=== PATIENT | male | born 1980 | race Caucasian/White ===

== ENCOUNTER 2018-07-03 09:49 | Observation (INO) | payer BC ==
[2018-07-03] MEDS ORDERED: Sodium Chloride 0.9% 2.5 ML Syringe FLUSH PRN (10:03)
[2018-07-03] MEDS ORDERED: Sodium Chloride 0.9% 10 ML Syringe FLUSH PRN (10:03)
[2018-07-03] MEDS ORDERED: Nitroglycerin 0.4 MG Tab.SL SL PRN (10:03)
[2018-07-03] MEDS ORDERED: Aspirin 81 MG Tab.Chew PO ONE (10:03)
--- NOTE | 2018-07-03 10:08 | EDM.PDOC ---
ED HPI GENERAL MEDICAL PROBLEM - General Chief Complaint: Chest Pain Stated Complaint: CHEST PAIN Time Seen by Provider: 07/03/18 10:02 Source of Information: Reports: Patient History Limitations: Reports: No Limitations - History of Present Illness INITIAL COMMENTS - FREE TEXT/NARRATIVE: History of present illness: []Patient awoke with 9/10 right-sided chest pain this morning that has subsided. He took an Ativan for his anxiety and a Pepcid for his GERD without relief. Patient arrives on his own with continued chest pain. Denies any recent illnesses. Patient states he has a family history of heart disease, is a heavy smoker as turned 38 and has not been worked up for heart disease and now is concerned. Review of systems: As per history of present illness and below otherwise all systems reviewed and negative. Past medical history: As per history of present illness and as reviewed below otherwise noncontributory. Surgical history: As per history of present illness and as reviewed below otherwise noncontributory. Social history: No reported history of drug or alcohol abuse. Family history: As per history of present illness and as reviewed below otherwise noncontributory. Physical exam: General: Well developed, well nourished in NAD HEENT: Atraumatic, normocephalic, pupils reactive, negative for conjunctival pallor or scleral icterus, mucous membranes moist, throat clear, neck supple, nontender, trachea midline. Lungs: Clear to auscultation, breath sounds equal bilaterally, chest nontender. Heart: S1S2, regular, negative for clicks, rubs, or JVD. Abdomen: NABS, Soft, nondistended, nontender. Negative for masses or hepatosplenomegaly. Negative for costovertebral tenderness. Pelvis: Stable nontender. Genitourinary: Deferred. Rectal: Deferred. Extremities: Atraumatic, negative for cords or calf pain. Neurovascular unremarkable. Neuro: Awake, alert, oriented. Cranial nerves II through XII unremarkable. Cerebellum unremarkable. Motor and sensory unremarkable throughout. Exam nonfocal. Skin:warm and dry Diagnostics: EKG, CBC, chemistry, troponin, chest x-ray Therapeutics: Aspirin, nitroglycerin ED Course: chest pain resolved Impression: Chest pain Prescriptions: none Plan: admit for chest pain, rule out NE Definitive disposition and diagnosis as appropriate pending reevaluation and review of above. Right Chest Pain Score (Numeric/FACES): 5 - Related Data Allergies Allergy/AdvReac Type Severity Reaction Status Date / Time codeine Allergy Cannot Verified 07/03/18 09:56 Remember Home Meds: Home Meds FLUoxetine [PROzac] 20 mg PO DAILY 07/03/18 [History] LORazepam [Ativan] 0.5 mg PO PRN 07/03/18 [History] Past Medical History Psychiatric History: Reports: Anxiety - Infectious Disease History Infectious Disease History: Reports: Chicken Pox Social & Family History - Family History Family Medical History: Noncontributory - Tobacco Use Smoking Status *Q: Current Every Day Smoker Years of Tobacco use: 20 Packs/Tins Daily: 0.5 - Recreational Drug Use Recreational Drug Use: No ED ROS GENERAL - Review of Systems Review Of Systems: ROS reveals no pertinent complaints other than HPI. ED EXAM, GENERAL - Physical Exam Exam: See Below (See history of present illness) Course - Vital Signs Last Recorded V/S: Last Vital Signs Temp 97.3 F 07/03/18 12:04 Pulse 77 07/03/18 12:04 Resp 18 07/03/18 12:04 BP 111/73 07/03/18 12:04 Pulse Ox 97 07/03/18 13:00 - Orders/Labs/Meds Orders: Active Orders 24 hr Category Date Time Status Patient Status [ADT] Stat ADT 07/03/18 11:30 Active EKG Documentation Completion [RC] STAT Care 07/03/18 10:02 Active Nitroglycerin [Nitrostat] Med 07/03/18 10:03 Active 0.4 mg SL Q5M PRN Sodium Chloride 0.9% [Saline Flush] Med 07/03/18 10:03 Active 10 ml FLUSH ASDIRECTED PRN Sodium Chloride 0.9% [Saline Flush] Med 07/03/18 10:03 Active 2.5 ml FLUSH ASDIRECTED PRN Saline Lock Insert [OM.PC] Stat Oth 07/03/18 10:02 Ordered Medication Orders Acetaminophen (Tylenol) 650 mg PO Q4H PRN PRN Reason: Pain (mild 1-3) Nitroglycerin (Nitrostat) 0.4 mg SL Q5M PRN PRN Reason: Chest Pain Last Admin: 07/03/18 11:19 Dose: 0.4 mg Ondansetron HCl (Zofran Odt) 4 mg PO Q4H PRN PRN Reason: nausea, able to take PO Sodium Chloride (Saline Flush) 10 ml FLUSH ASDIRECTED PRN PRN Reason: Keep Vein Open Last Admin: 07/03/18 10:17 Dose: 10 ml Sodium Chloride (Saline Flush) 2.5 ml FLUSH ASDIRECTED PRN PRN Reason: Keep Vein Open Last Admin: 07/03/18 10:17 Dose: 2.5 ml Labs: Laboratory Tests 07/03/18 07/03/18 Range/Units 10:12 10:12 WBC 6.45 (4.0-11.0) K/uL RBC 5.06 (4.50-5.90) M/uL Hgb 15.5 (13.0-17.0) g/dL Hct 46.7 (38.0-50.0) % MCV 92.3 (80.0-98.0) fL MCH 30.6 (27.0-32.0) pg MCHC 33.2 (31.0-37.0) g/dL RDW Std Deviation 43.5 (28.0-62.0) fl RDW Coeff of Trent 13 (11.0-15.0) % Plt Count 271 (150-400) K/uL MPV 10.20 (7.40-12.00) fL Neut % (Auto) 69.6 (48.0-80.0) % Lymph % (Auto) 21.4 (16.0-40.0) % Terry % (Auto) 7.3 (0.0-15.0) % Eos % (Auto) 1.2 (0.0-7.0) % Baso % (Auto) 0.5 (0.0-1.5) % Neut # (Auto) 4.5 (1.4-5.7) K/uL Lymph # (Auto) 1.4 (0.6-2.4) K/uL Terry # (Auto) 0.5 (0.0-0.8) K/uL Eos # (Auto) 0.1 (0.0-0.7) K/uL Baso # (Auto) 0.0 (0.0-0.1) K/uL Nucleated RBC % 0.0 /100WBC Nucleated RBCs # 0 K/uL Sodium 138 (136-148) mmol/L Potassium 4.1 (3.5-5.1) mmol/L Chloride 104 (98-107) mmol/L Carbon Dioxide 25.6 (21.0-32.0) mmol/L BUN 11 (7.0-18.0) mg/dL Creatinine 0.9 (0.8-1.3) mg/dL Est Cr Clr Drug Dosing 109.10 mL/min Estimated GFR (MDRD) > 60.0 ml/min Glucose 108 H (74-106) mg/dL Calcium 8.7 (8.5-10.1) mg/dL Total Bilirubin 0.3 (0.2-1.0) mg/dL AST 13 L (15-37) IU/L ALT 22 (14-63) IU/L Alkaline Phosphatase 88 (46-116) U/L Troponin I < 0.050 (0.000-0.056) ng/mL Total Protein 7.5 (6.4-8.2) g/dL Albumin 3.9 (3.4-5.0) g/dL Globulin 3.6 (2.6-4.0) g/dL Albumin/Globulin Ratio 1.1 (0.9-1.6) TSH 3rd Generation 0.68 (0.36-3.74) uIU/mL Meds: Medications Generic Name Dose Route Start Last Admin Trade Name Freq PRN Reason Stop Dose Admin Acetaminophen 650 mg 07/03/18 12:20 Tylenol PO Q4H PRN Pain (mild 1-3) Nitroglycerin 0.4 mg 07/03/18 10:07/03/18 11:19 Nitrostat SL 0.4 mg Q5M PRN Administration Chest Pain Ondansetron HCl 4 mg 07/03/18 12:20 Zofran Odt PO Q4H PRN nausea, able to take PO Sodium Chloride 10 ml 07/03/18 10:07/03/18 10:17 Saline Flush FLUSH 10 ml ASDIRECTED PRN Administration Keep Vein Open Sodium Chloride 2.5 ml 07/03/18 10:03 07/03/18 10:17 Saline Flush FLUSH 2.5 ml ASDIRECTED PRN Administration Keep Vein Open Discontinued Medications Generic Name Dose Route Start Last Admin Trade Name Freq PRN Reason Stop Dose Admin Aspirin 324 mg 05/08/19 10:03 07/03/18 10:15 Aspirin PO 07/03/18 10:04 324 mg ONETIME ONE Administration Famotidine 20 mg 07/03/18 12:22 07/03/18 13:35 Pepcid IVPUSH 07/03/18 12:23 20 mg ONETIME ONE Administration Departure - Departure Time of Disposition: 11:55 Disposition: Refer to Observation Condition: Good Clinical Impression: Chest pain Qualifiers: Chest pain type: unspecified Qualified Code(s): R07.9 - Chest pain, unspecified - My Orders Last 24 Hours: My Active Orders 07/03/18 10:02 EKG Documentation Completion [RC] STAT Saline Lock Insert [OM.PC] Stat 07/03/18 10:03 Nitroglycerin [Nitrostat] 0.4 mg SL Q5M PRN Sodium Chloride 0.9% [Saline Flush] 10 ml FLUSH ASDIRECTED PRN Sodium Chloride 0.9% [Saline Flush] 2.5 ml FLUSH ASDIRECTED PRN 07/03/18 11:30 Patient Status [ADT] Stat - Assessment/Plan Last 24 Hours: My Active Orders 07/03/18 10:02 EKG Documentation Completion [RC] STAT Saline Lock Insert [OM.PC] Stat 07/03/18 10:03 Nitroglycerin [Nitrostat] 0.4 mg SL Q5M PRN Sodium Chloride 0.9% [Saline Flush] 10 ml FLUSH ASDIRECTED PRN Sodium Chloride 0.9% [Saline Flush] 2.5 ml FLUSH ASDIRECTED PRN 07/03/18 11:30 Patient Status [ADT] Stat
--- NOTE | 2018-07-03 10:38 | CR ---
EXAMINATION: Portable chest radiograph. HISTORY: Shortness of breath. FINDINGS: The trachea is midline. The cardiomediastinal silhouette is within normal limits. No pulmonary infiltrates, effusions or pneumothorax. Osseous structures appear unremarkable. IMPRESSION: No acute cardiopulmonary process.
[2018-07-03 10:54] LABS: CHLORIDE,CL 104 mmol/L (98-107); SODIUM,NA 138 mmol/L (136-148)
--- NOTE | 2018-07-03 12:11 | PCM.HP ---
H&P History of Present Illness - General Date of Service: 07/03/18 Admit Problem/Dx: Admission Diagnosis/Problem Admission Diagnosis/Problem Chest pain Source of Information: Patient History Limitations: Reports: No Limitations - History of Present Illness Initial Comments - Free Text/Narative: This 38 year old male with pmh of GERD and anxiety presented to the ED with complaints of chest pain that woke him up this morning around 6 am. He reports this pain was sharp and achey in nature all across his chest with some radiation to R forearm. He also had the dry heaves with diaphoresis. He took his Prozac and Nexium as normal to try help the pain, this didn't seem to work so he tried his PRN Ativan thinking maybe it was anxiety, but that also didn't help. Nothing seemed to make it worse. When it didn't go away and the pain was around a 9/10 he felt he should be evaluated in the ED. He reports this pain happens intermittently and has seen providers for it in the past, he reports they check labs and nothing comes back abnormal. He denies ever having a stress test. He denies any recent injury trauma or repetitive movements. No fevers, chills dyspnea or palpitations. No abdominal pain or urinary concerns. He reports he recently had his labwork checked at the [place] and his cholesterol was good. He reports he has family with heart disease, including his father and both grandfathers with MIs in their 60s. His father and brother had DM Type 2. He denies known personal hx of CAD or DM. He report 1/2 ppd cigarette use, rare alcohol use and no recreational drug use. In the ED labwork was all WNL. Troponin negative. EKG no acute ST segment changes and no signs of acute ischemia. CXR negative. He reports pain was relieved with 1 SL nitro and the ASA. He will be admitted for chest pain rule out ACS PCP, [place] Right Chest Pain Score (Numeric/FACES): 5 - Related Data Allergies/Adverse Reactions: Allergies Allergy/AdvReac Type Severity Reaction Status Date / Time codeine Allergy Cannot Verified 07/03/18 09:56 Remember Home Medications: Home Meds FLUoxetine [PROzac] 07/03/18 [History] LORazepam [Ativan] 07/03/18 [History] Past Medical History Cardiovascular History: Reports: None. Denies: Afib, Blood Clots/VTE/DVT, High Cholesterol, Hypertension, NC Respiratory History: Reports: None. Denies: Asthma, COPD, SOB Gastrointestinal History: Reports: GERD. Denies: GI Bleed Genitourinary History: Reports: None. Denies: Chronic Renal Insuffiency Musculoskeletal History: Reports: None Neurological History: Reports: None. Denies: CVA, Migraines, TIA Psychiatric History: Reports: Anxiety Endocrine/Metabolic History: Reports: None. Denies: Diabetes, Type II, Hypothyroidism - Infectious Disease History Infectious Disease History: Reports: Chicken Pox Social & Family History - Family History Family Medical History: Noncontributory - Tobacco Use Smoking Status *Q: Current Every Day Smoker Years of Tobacco use: 20 Packs/Tins Daily: 0.5 - Alcohol Use Alcohol Use History: No - Recreational Drug Use Recreational Drug Use: No H&P Review of Systems - Review of Systems: Review Of Systems: See Below General: Reports: No Symptoms. Denies: Fever, Chills, Malaise, Fatigue HEENT: Reports: No Symptoms. Denies: Headaches, Hearing Changes, Sore Throat, Vertigo Pulmonary: Reports: No Symptoms. Denies: Shortness of Breath, Wheezing, Cough, Sputum Cardiovascular: Denies: Chest Pain (no current chest pain, but when he woke up, as per HPI) Gastrointestinal: Reports: Nausea Genitourinary: Reports: No Symptoms. Denies: Dysuria, Frequency, Burning Musculoskeletal: Reports: No Symptoms Skin: Reports: No Symptoms Neurological: Reports: No Symptoms Hematologic/Lymphatic: Reports: No Symptoms Immunologic: Reports: No Symptoms Exam - Exam Exam: See Below - Vital Signs Vital Signs: Last Vital Signs Temp 97.1 F 07/03/18 09:53 Pulse 85 07/03/18 10:49 Resp 13 07/03/18 10:49 BP 121/85 07/03/18 11:19 Pulse Ox 98 07/03/18 10:49 Weight: 93.44 kg - Exam Quality Assessment: DVT Prophylaxis. No: Supplemental Oxygen General: Alert, Oriented, Cooperative HEENT: Conjunctiva Clear, Mucosa Moist & [place], Posterior Pharynx Clear Neck: Supple, Trachea Midline Lungs: Clear to Auscultation, Normal Respiratory Effort Cardiovascular: Regular Rate, Regular Rhythm, Normal S1, Normal S2. No: Tachycardia, Systolic Murmur GI/Abdominal Exam: Normal Bowel Sounds, Soft, Non-Tender, No Distention Back Exam: Normal Inspection, Full Range of Motion Extremities: Normal Inspection, Normal Range of Motion, Non-Tender, No Pedal Edema Neurological: Cranial Nerves Intact Neuro Extensive - Mental Status: Alert, Oriented x3, Normal Mood/Affect Neuro Extensive - Motor, Sensory, Reflexes: CN II-XII Intact, Normal Gait Psychiatric: Alert, Normal Affect, Normal Mood - Patient Data Lab Results Last 24 hrs: Laboratory Results - last 24 hr 07/03/18 07/03/18 Range/Units 10:12 10:12 WBC 6.45 (4.0-11.0) K/uL RBC 5.06 (4.50-5.90) M/uL Hgb 15.5 (13.0-17.0) g/dL Hct 46.7 (38.0-50.0) % MCV 92.3 (80.0-98.0) fL MCH 30.6 (27.0-32.0) pg MCHC 33.2 (31.0-37.0) g/dL RDW Std Deviation 43.5 (28.0-62.0) fl RDW Coeff of Trent 13 (11.0-15.0) % Plt Count 271 (150-400) K/uL MPV 10.20 (7.40-12.00) fL Neut % (Auto) 69.6 (48.0-80.0) % Lymph % (Auto) 21.4 (16.0-40.0) % [place] % (Auto) 7.3 (0.0-15.0) % Eos % (Auto) 1.2 (0.0-7.0) % Baso % (Auto) 0.5 (0.0-1.5) % Neut # (Auto) 4.5 (1.4-5.7) K/uL Lymph # (Auto) 1.4 (0.6-2.4) K/uL [place] # (Auto) 0.5 (0.0-0.8) K/uL Eos # (Auto) 0.1 (0.0-0.7) K/uL Baso # (Auto) 0.0 (0.0-0.1) K/uL Nucleated RBC % 0.0 /100WBC Nucleated RBCs # 0 K/uL Sodium 138 (136-148) mmol/L Potassium 4.1 (3.5-5.1) mmol/L Chloride 104 (98-107) mmol/L Carbon Dioxide 25.6 (21.0-32.0) mmol/L BUN 11 (7.0-18.0) mg/dL Creatinine 0.9 (0.8-1.3) mg/dL Est Cr Clr Drug Dosing 109.10 mL/min Estimated GFR (MDRD) > 60.0 ml/min Glucose 108 H (74-106) mg/dL Calcium 8.7 (8.5-10.1) mg/dL Total Bilirubin 0.3 (0.2-1.0) mg/dL AST 13 L (15-37) IU/L ALT 22 (14-63) IU/L Alkaline Phosphatase 88 (46-116) U/L Troponin I < 0.050 (0.000-0.056) ng/mL Total Protein 7.5 (6.4-8.2) g/dL Albumin 3.9 (3.4-5.0) g/dL Globulin 3.6 (2.6-4.0) g/dL Albumin/Globulin Ratio 1.1 (0.9-1.6) TSH 3rd Generation 0.68 (0.36-3.74) uIU/mL Result Diagrams: 07/03/18 10:12 07/03/18 10:12 EKG INTERPRETATION EKG Date: 07/03/18 Rhythm: NSR Rate (Beats/Min): 80 P-Wave: Present QRS: Normal ST-T: Elevated (repolarization) QT: Normal Comparison: NA - No Prior EKG *Q Meaningful Use (ADM) - VTE Risk Assess *Q Each Risk Factor Represents 1 Point: Obesity ( BMI > 25 kg/m2) Total Score 1 Point Risk Factors: 1 Each Risk Factor Represents 2 Points: None Total Score 2 Point Risk Factors: 0 Each Risk Factor Represents 3 Points: None Total Score 3 Point Risk Factors: 0 Each Risk Factor Represents 5 Points: None Total Score 5 Point Risk Factors: 0 Venous Thromboembolism Risk Factor Score *Q: 1 - Problem List (1) Chest pain SNOMED Code(s): 58998595 ICD Code: R07.9 - CHEST PAIN, UNSPECIFIED Status: Acute Current Visit: Yes (2) Anxiety SNOMED Code(s): 77507606 ICD Code: F41.9 - ANXIETY DISORDER, UNSPECIFIED Status: Chronic Current Visit: Yes (3) Smoker SNOMED Code(s): 38050749 ICD Code: F17.200 - NICOTINE DEPENDENCE, UNSPECIFIED, UNCOMPLICATED Status : Chronic Current Visit: Yes (4) GERD (gastroesophageal reflux disease) SNOMED Code(s): 799674477 ICD Code: K21.9 - GASTRO-ESOPHAGEAL REFLUX DISEASE WITHOUT ESOPHAGITIS Status: Chronic Current Visit: Yes Qualifiers: Esophagitis presence: esophagitis presence not specified Qualified Code(s) : K21.9 - Gastro-esophageal reflux disease without esophagitis Problem List Initiated/Reviewed/Updated: Yes Orders Last 24hrs: Active Orders 24 hr Category Date Time Status Patient Status [ADT] Stat ADT 07/03/18 11:30 Active EKG Documentation Completion [RC] STAT Care 07/03/18 10:02 Active Saline Lock Insert [OM.PC] Stat Oth 07/03/18 10:02 Ordered Assessment/Plan Comment:: This 38 year old male admitted with chest pain rule out ACS. 1. Chest pain: Will trend troponins, monitor on telemetry. Will obtain labs from [place]. Schedule for outpatient stress test. 2. GERD: Continue Nexium, will give a dose of IV Pepcid. Monitor 3. Anxiety: Stable. Conitnue Prozac VTE prophylaxis: SCDs Dispo: in am.
[2018-07-03] MEDS ORDERED: Ondansetron 4 MG Tab.DIS PO PRN (12:20)
[2018-07-03] MEDS ORDERED: Acetaminophen 325 MG Tab PO PRN (12:20)
[2018-07-03] MEDS ORDERED: Famotidine 20 MG/2 ML SDV IVPUSH ONE (12:22)
[2018-07-03 16:44] LABS: HEMOGLOBIN A1C 5.2 % (4.5-6.2)
--- NOTE | 2018-07-04 08:03 | PCM.DCSUM1 ---
Discharge Summary - Hospital Course Brief History: This 38 year old male with pmh of GERD and anxiety presented to the ED with complaints of chest pain that woke him up this morning around 6 am. He reports this pain was sharp and achey in nature all across his chest with some radiation to R forearm. He also had the dry heaves with diaphoresis. He took his Prozac and Nexium as normal to try help the pain, this didn't seem to work so he tried his PRN Ativan thinking maybe it was anxiety, but that also didn't help. Nothing seemed to make it worse. When it didn't go away and the pain was around a 9/10 he felt he should be evaluated in the ED. He reports this pain happens intermittently and has seen providers for it in the past, he reports they check labs and nothing comes back abnormal. He denies ever having a stress test. He denies any recent injury trauma or repetitive movements. No fevers, chills dyspnea or palpitations. No abdominal pain or urinary concerns. He reports he recently had his labwork checked at the [place] and his cholesterol was good. He reports he has family with heart disease, including his father and both grandfathers with MIs in their 60s. His father and brother had DM Type 2. He denies known personal hx of CAD or DM. He report 1/2 ppd cigarette use, rare alcohol use and no recreational drug use. In the ED labwork was all WNL. Troponin negative. EKG no acute ST segment changes and no signs of acute ischemia. CXR negative. He reports pain was relieved with 1 SL nitro and the ASA. He will be admitted for chest pain rule out ACS. PCP, [facility] Diagnosis: Stroke: No - Discharge Data Discharge Date: 07/04/18 Discharge Disposition: Home, Self-Care 01 Condition: Stable - Discharge Diagnosis/Problem(s) (1) Chest pain SNOMED Code(s): 92487802 ICD Code: R07.9 - CHEST PAIN, UNSPECIFIED Status: Acute Current Visit: Yes Qualifiers: Chest pain type: unspecified Qualified Code(s): R07.9 - Chest pain, unspecified (2) Anxiety SNOMED Code(s): 10959214 ICD Code: F41.9 - ANXIETY DISORDER, UNSPECIFIED Status: Chronic Current Visit: No (3) Smoker SNOMED Code(s): 56137051 ICD Code: F17.200 - NICOTINE DEPENDENCE, UNSPECIFIED, UNCOMPLICATED Status : Chronic Current Visit: No (4) GERD (gastroesophageal reflux disease) SNOMED Code(s): 238653493 ICD Code: K21.9 - GASTRO-ESOPHAGEAL REFLUX DISEASE WITHOUT ESOPHAGITIS Status: Chronic Current Visit: No Qualifiers: Esophagitis presence: esophagitis presence not specified Qualified Code(s) : K21.9 - Gastro-esophageal reflux disease without esophagitis - Patient Instructions Diet: Heart Healthy Diet Activity: No Strenuous Activities (until after stress test) Driving: May Drive Today Showering/Bathing: May Shower Notify Provider of: Fever, Increased Pain, Swelling and Redness, Drainage, Nausea and/or Vomiting - Discharge Plan *PRESCRIPTION DRUG MONITORING PROGRAM REVIEWED*: Not Applicable *COPY OF PRESCRIPTION DRUG MONITORING REPORT IN PATIENT ALESSANDRO: Not Applicable Home Medications: Home Meds FLUoxetine [PROzac] 20 mg PO DAILY 07/03/18 [History] LORazepam [Ativan] 0.5 mg PO PRN 07/03/18 [History] Oxygen Therapy Mode: Room Air Patient Handouts: Nonspecific Chest Pain Referrals: [facility] [Outside] - Discharge Summary/Plan Comment DC Time >30 min.: No Discharge Summary/Plan Comment: Discharge Diagnoses: Chest pain-resolved Other PMH Anxiety GERD Mateo was admitted and monitored for chest pain. No recurrence of chest pain. He was monitored on telemetry with no changes. Troponins negative. He will be discharged home today. He is to follow up with PCP and have outpatient stress test to fully evaluate cardiac. Though this chest pain was atypical, may be more related to GERD or anxiety. He is to return to ED or clinic if concerns should arise. - General Info Date of Service: 07/04/18 Admission Dx/Problem (Free Text: Admission Diagnosis/Problem Admission Diagnosis/Problem Chest pain Subjective Update: Denies concerns currently. No chest pain or SOB. Ready to be discharged home. Functional Status: Reports: Pain Controlled, Tolerating Diet, Ambulating, Urinating - Review of Systems General: Reports: No Symptoms. Denies: Fever, Weakness, Fatigue HEENT: Reports: No Symptoms. Denies: Sore Throat, Visual Changes Pulmonary: Reports: No Symptoms. Denies: Shortness of Breath Cardiovascular: Reports: No Symptoms. Denies: Chest Pain Gastrointestinal: Reports: No Symptoms. Denies: Abdominal Pain, Nausea, Vomiting Genitourinary: Reports: No Symptoms. Denies: Dysuria, Burning Musculoskeletal: Reports: No Symptoms Skin: Reports: No Symptoms Neurological: Reports: No Symptoms Psychiatric: Reports: No Symptoms - Patient Data Vitals - Most Recent: Last Vital Signs Temp 98.3 F 07/04/18 04:00 Pulse 52 L 07/04/18 04:00 Resp 16 07/04/18 04:00 BP 127/74 07/04/18 04:00 Pulse Ox 96 07/04/18 04:00 Weight - Most Recent: 93.44 kg I&O - Last 24 hours: Intake & Output 07/03/18 07/04/18 07/04/18 22:59 06:59 14:59 Intake Total 0 700 Output Total 0 600 Balance 0 100 Lab Results - Last 24 hrs: Laboratory Results - last 24 hr 07/03/18 07/03/18 07/03/18 Range/Units 10:12 10:12 10:12 WBC 6.45 (4.0-11.0) K/uL RBC 5.06 (4.50-5.90) M/uL Hgb 15.5 (13.0-17.0) g/dL Hct 46.7 (38.0-50.0) % MCV 92.3 (80.0-98.0) fL MCH 30.6 (27.0-32.0) pg MCHC 33.2 (31.0-37.0) g/dL RDW Std Deviation 43.5 (28.0-62.0) fl RDW Coeff of [place] 13 (11.0-15.0) % Plt Count 271 (150-400) K/uL MPV 10.20 (7.40-12.00) fL Neut % (Auto) 69.6 (48.0-80.0) % Lymph % (Auto) 21.4 (16.0-40.0) % [place] % (Auto) 7.3 (0.0-15.0) % Eos % (Auto) 1.2 (0.0-7.0) % Baso % (Auto) 0.5 (0.0-1.5) % Neut # (Auto) 4.5 (1.4-5.7) K/uL Lymph # (Auto) 1.4 (0.6-2.4) K/uL [place] # (Auto) 0.5 (0.0-0.8) K/uL Eos # (Auto) 0.1 (0.0-0.7) K/uL Baso # (Auto) 0.0 (0.0-0.1) K/uL Nucleated RBC % 0.0 /100WBC Nucleated RBCs # 0 K/uL Sodium 138 (136-148) mmol/L Potassium 4.1 (3.5-5.1) mmol/L Chloride 104 (98-107) mmol/L Carbon Dioxide 25.6 (21.0-32.0) mmol/L BUN 11 (7.0-18.0) mg/dL Creatinine 0.9 (0.8-1.3) mg/dL Est Cr Clr Drug Dosing 109.10 mL/min Estimated GFR (MDRD) > 60.0 ml/min Glucose 108 H (74-106) mg/dL Hemoglobin A1c (4.5-6.2) % Calcium 8.7 (8.5-10.1) mg/dL Total Bilirubin 0.3 (0.2-1.0) mg/dL AST 13 L (15-37) IU/L ALT 22 (14-63) IU/L Alkaline Phosphatase 88 (46-116) U/L Troponin I < 0.050 (0.000-0.056) ng/mL Total Protein 7.5 (6.4-8.2) g/dL Albumin 3.9 (3.4-5.0) g/dL Globulin 3.6 (2.6-4.0) g/dL Albumin/Globulin Ratio 1.1 (0.9-1.6) Triglycerides 127 (0-200) mg/dL Cholesterol 201 H (50-200) mg/dL LDL Cholesterol, Calc 140 (60-180) mg/dL VLDL Cholesterol 25 (5-55) mg/dL HDL Cholesterol 36 L (40-60) mg/dL Cholesterol/HDL Ratio 5.6 (3.3-6.0) TSH 3rd Generation 0.68 (0.36-3.74) uIU/mL 07/03/18 07/03/18 07/03/18 Range/Units 10:12 16:11 22:19 WBC (4.0-11.0) K/uL RBC (4.50-5.90) M/uL Hgb (13.0-17.0) g/dL Hct (38.0-50.0) % MCV (80.0-98.0) fL MCH (27.0-32.0) pg MCHC (31.0-37.0) g/dL RDW Std Deviation (28.0-62.0) fl RDW Coeff of [place] (11.0-15.0) % Plt Count (150-400) K/uL MPV (7.40-12.00) fL Neut % (Auto) (48.0-80.0) % Lymph % (Auto) (16.0-40.0) % [place] % (Auto) (0.0-15.0) % Eos % (Auto) (0.0-7.0) % Baso % (Auto) (0.0-1.5) % Neut # (Auto) (1.4-5.7) K/uL Lymph # (Auto) (0.6-2.4) K/uL [place] # (Auto) (0.0-0.8) K/uL Eos # (Auto) (0.0-0.7) K/uL Baso # (Auto) (0.0-0.1) K/uL Nucleated RBC % /100WBC Nucleated RBCs # K/uL Sodium (136-148) mmol/L Potassium (3.5-5.1) mmol/L Chloride (98-107) mmol/L Carbon Dioxide (21.0-32.0) mmol/L BUN (7.0-18.0) mg/dL Creatinine (0.8-1.3) mg/dL Est Cr Clr Drug Dosing mL/min Estimated GFR (MDRD) ml/min Glucose (74-106) mg/dL Hemoglobin A1c 5.2 (4.5-6.2) % Calcium (8.5-10.1) mg/dL Total Bilirubin (0.2-1.0) mg/dL AST (15-37) IU/L ALT (14-63) IU/L Alkaline Phosphatase (46-116) U/L Troponin I < 0.050 < 0.050 (0.000-0.056) ng/mL Total Protein (6.4-8.2) g/dL Albumin (3.4-5.0) g/dL Globulin (2.6-4.0) g/dL Albumin/Globulin Ratio (0.9-1.6) Triglycerides (0-200) mg/dL Cholesterol (50-200) mg/dL LDL Cholesterol, Calc (60-180) mg/dL VLDL Cholesterol (5-55) mg/dL HDL Cholesterol (40-60) mg/dL Cholesterol/HDL Ratio (3.3-6.0) TSH 3rd Generation (0.36-3.74) uIU/mL Med Orders - Current: Current Medications Acetaminophen (Tylenol) 650 mg PO Q4H PRN PRN Reason: Pain (mild 1-3) Last Admin: 07/03/18 21:04 Dose: 650 mg Nitroglycerin (Nitrostat) 0.4 mg SL Q5M PRN PRN Reason: Chest Pain Last Admin: 07/03/18 11:19 Dose: 0.4 mg Ondansetron HCl (Zofran Odt) 4 mg PO Q4H PRN PRN Reason: nausea, able to take PO Sodium Chloride (Saline Flush) 10 ml FLUSH ASDIRECTED PRN PRN Reason: Keep Vein Open Last Admin: 07/03/18 10:17 Dose: 10 ml Sodium Chloride (Saline Flush) 2.5 ml FLUSH ASDIRECTED PRN PRN Reason: Keep Vein Open Last Admin: 07/03/18 10:17 Dose: 2.5 ml Discontinued Medications Aspirin (Aspirin) 324 mg PO ONETIME ONE Stop: 07/03/18 10:04 Last Admin: 07/03/18 10:15 Dose: 324 mg Famotidine (Pepcid) 20 mg IVPUSH ONETIME ONE Stop: 07/03/18 12:23 Last Admin: 07/03/18 13:35 Dose: 20 mg - Exam General: Reports: Alert, Oriented, Cooperative Lungs: Reports: Clear to Auscultation, Normal Respiratory Effort Cardiovascular: Reports: Regular Rate, Regular Rhythm GI/Abdominal Exam: Normal Bowel Sounds, Soft, Non-Tender, No Organomegaly Extremities: Normal Inspection, Normal Range of Motion, Non-Tender, No Pedal Edema Neurological: Reports: No New Focal Deficit Psy/Mental Status: Reports: Normal Mood
== END 2018-07-04 11:50 | disposition home or self-care (01) ==
LOC: MW.ED 09:49 → MW.MS 12:00
PROVIDERS: ADMIT Internal Medicine; ATTEND Internal Medicine
DX: R07.9 Chest pain, unspecified (principal); F41.9 Anxiety disorder, unspecified; K21.9 Gastro-esophageal reflux disease without esophagitis; F17.210 Nicotine dependence, cigarettes, uncomplicated; Z79.899 Other long term (current) drug therapy; Z88.5 Allergy status to narcotic agent
CPT/HCPCS: 36415; 71045; 80053; 80061; 83036; 84443; 84484; 85025; 93005; 96374; 99285; A9270; G0378; J3490